=== PATIENT | female | born 1935 | race Caucasian/White ===

== ENCOUNTER 2017-03-22 12:47 | Day surgery (SDC) | payer MEDICARE ==
[2017-03-16 15:57] VITALS: BMI 25.7
[~2017-03-22 12:47] MED LIST: SODIUM CHLORIDE 0.9% 1,000 ML IV SCH; ceFAZolin 1,000 MG in SODIUM CHLORIDE 0.9% IRRIGATIO 250 ML IRRIGATION ONE; ceFAZolin 2 GM in SODIUM CHLORIDE 0.9% 100 ML IVPB ONE
[2017-03-22 13:25] LABS: Basophils % (A) 0 %; CH 31.1; CHCM 32.6; Eosinophils # (A) 0.2 k/uL (0-0.7); Eosinophils % (A) 2 %; HCT 44.3 % (34.0-46.0); HDW 2.44; HGB 14.3 gm/dL (11.4-16.0); Luc # (Auto) 0.12; Luc % (Auto) 2; Lymphocytes # (A) 1.4 k/uL (1.0-4.8); Lymphocytes % (A) 20 %; MCHC 32.3 g/dL (31.0-37.0); MCV 95.9 fL (80.0-100.0); Mean Platelet Volume 7.1; Monocytes # (A) 0.3 k/uL (0-1.0); Monocytes % (A) 4 %; Neutrophils % (A) 71 %; RBC 4.62 m/uL (3.80-5.40); RDW 13.8 % (11.5-15.5); WBC (Perox) 7.48
[2017-03-22 13:39] LABS: Calcium 9.4 mg/dL (8.4-10.2); Potassium 4.1 mmol/L (3.5-5.1)
[2017-03-22] MEDS ORDERED: MIDAZOLAM 2 MG/2 ML VIAL ONE (14:17)
[2017-03-22] MEDS ORDERED: fentaNYL (PF) 50 MCG/ML 2 ML AMP ONE (14:17)
[2017-03-22] MEDS ORDERED: PROPOFOL 10 MG/ML 20 ML VIAL IV ONE (14:17)
[2017-03-22] MEDS ORDERED: LIDOCAINE 1% INJ 10MG/ML (20 ML MDV) SQ ONE (15:04)
[2017-03-22] MEDS ORDERED: ACETAMINOPHEN TAB 325 MG TAB PO PRN (16:06)
[2017-03-22] MEDS ORDERED: ACETAMINOPHEN IV (For NPO) 1,000 MG in EMPTY BAG 1 BAG IVPB ONE (17:00)
--- NOTE | 2017-03-22 17:07 | PCN ---
DATE OF PROCEDURE: Rihca is an 81-year-old female who has known ischemic cardiomyopathy with a reduced LV systolic function and class II heart failure symptoms, sick sinus syndrome with a past history of ventricular tachycardia that was the original indication for ICD implantation. A dual-chamber ICD was implanted at that time for management of concomitant sick sinus syndrome. Her generator is at [facility]. She was brought in for a dual-chamber ICD generator change. Patient was brought to the EP lab in a fasting state. Written informed consent was obtained prior to the procedure. The left shoulder area was prepped and draped as per protocol. Lidocaine 1% was used for local anesthesia. A 4 cm decision was made directly over the previous surgical site and carried down to the level of the generator. The generator was explanted. Leads were interrogated. The new generator was implanted. Partial capsulectomy was performed. Lead and the generator were tested and then placed in the subfascial pocket and secured to the underlying pectoralis muscle. The extracted device was a KRAFTWERK E110, serial #[id number], originally implanted in 2009. The newly implanted generator was a Topic ICD DR, model #D153, serial #[id number]. The atrial lead is a Fineline II screw-in lead, bipolar, model #4473, serial #[id number]. The P waves were 3.4 mV, pacing threshold 0.6 v at 0.4 ms, pacing impedance of 351 ohms. The ICD lead was a Eolia active fix dual-coil lead, model #0157, serial #[id number], R waves 13.7 mV, pacing threshold 0.9 v at 0.4 ms, pacing impedance of 599 ohms, shock impedance of 48 ohms. DFT testing under anesthesia was performed. A knerm-jhu-R-wave protocol was used to induce ventricular fibrillation. This was adequately and appropriately detected at least sensitivity and successfully internally defibrillated with a 21-joule shock. A 10-joule shock was unsuccessful. Total charge time was 3.6 seconds, shocking impedance 42 ohms. No post-shock noise. The device was then reprogrammed to a sensitivity of 0.4 mV. MADIT RIT programming was performed with appropriate anti-tachycardia pacing, cardioversion and defibrillation. RESULT: Successful dual-chamber ICD generator change for normal battery depletion in a patient with ischemic cardiomyopathy, class II stable heart failure symptoms, on appropriate ( ) and medical treatment as well as amiodarone for history of ventricular tachycardia and a history of sick sinus syndrome. DFT at or below 21 joules. PLAN: Intravenous antibiotics and likely discharge tomorrow. Followup in the office in 5 days.
--- NOTE | 2017-03-22 17:09 | LTR ---
March 22, 2017 RE: Richa Rice Dear Dr. Bueno, I had the pleasure of seeing Richa Rice in electrophysiology followup. As you know, Richa has ischemic cardiomyopathy and a history of ventricular tachycardia. An ICD was implanted in 2009. Her generator was at [facility], and therefore her dual-chamber ICD was replaced. She tolerated the procedure well without any acute complications. She will continue to follow up with you and Dr. Jael Ponce as before. Thank you for entrusting me with the care of your patient. Warm regards. Sincerely, YULY HAWKINS MD
[2017-03-22] MEDS: ceFAZolin 2 GM in SODIUM CHLORIDE 0.9% 100 ML IVPB SCH (19:37)
[2017-03-22] MEDS: METOPROLOL TARTRATE 50 MG TAB PO SCH (19:37)
[2017-03-23] MEDS: ceFAZolin 2 GM in SODIUM CHLORIDE 0.9% 100 ML IVPB SCH ×2 (01:36→08:30)
[2017-03-23] MEDS ORDERED: LEVOTHYROXINE 50 MCG TAB PO SCH (06:30)
[2017-03-23] MEDS: LOSARTAN 50 MG TAB PO SCH ×2 (07:48→09:38)
[2017-03-23] MEDS: METOPROLOL TARTRATE 50 MG TAB PO SCH (07:48)
[2017-03-23] MEDS ORDERED: AMIODARONE 200 MG TAB PO SCH (09:00)
--- NOTE | 2017-03-23 10:51 | PN ---
Ms. Bobby underwent a dual-chamber ICD generator change yesterday. She has a history of ventricular tachycardia. She has had ICD therapies subsequently. Originally, she had ventricular fibrillation in the setting of underlying chronic ischemic cardiomyopathy and hence, ICD was placed at that time and dual-chamber ICD was implanted because of mild sinus bradycardia. She underwent an ICD generator change today and is doing well. There is no hematoma. Heart sounds are normal. No rub, no gallop. Breath sounds are normal. No rhonchi. No crackles. Abdomen is soft, nontender. Extremities are warm. No edema. Blood pressure is in normal limits. She is lying flat in bed. PLAN: IV antibiotics and discharge home today. Follow up in the [facility] in 5 days and followup with Dr. Ponce as usual. Continue amiodarone, continue heart failure medications.
[2017-03-23 11:35] VITALS: BP 112/54; PULSE 53; RESP 18; TEMP 98.1
== END 2017-03-23 14:47 | disposition home or self-care (01) ==
LOC: CATHEP 12:47 → 3OBS 15:50 → CATHEP 03-23 14:47
PROVIDERS: ATTEND Internal Medicine Clinical Cardiac Electrophysiology
DX: I49.5 Sick sinus syndrome (principal); I25.5 Ischemic cardiomyopathy; I47.2 Ventricular tachycardia; Z20.6 Contact with and (suspected) exposure to human immunodeficiency virus [HIV]; I10 Essential (primary) hypertension; Z95.1 Presence of aortocoronary bypass graft; E78.5 Hyperlipidemia, unspecified; Z79.899 Other long term (current) drug therapy
CPT/HCPCS: 93641; 33249; 80048; 85025; C1721; J2250; J0690 ×3; J2001; J3010; J2704

== ENCOUNTER 2017-09-16 09:39 | Observation (INO) | payer MEDICARE ==
[2017-09-16] MEDS ORDERED: MORPHINE SULFATE 4 MG/ML SYRINGE IVP STA (10:12)
--- NOTE | 2017-09-16 10:16 | ED ---
General Adult HPI - General Chief complaint: Shortness of Breath Stated complaint: jovan Time Seen by Provider: 09/16/17 09:50 Source: patient, RN notes reviewed, old records reviewed Mode of arrival: wheelchair Limitations: no limitations - History of Present Illness Initial comments: 82-year-old female with history of coronary artery disease, remote history of cardiac arrest status post implantable defibrillator presents for evaluation of shortness of breath and bilateral upper back pain. Pain in the patient's back is over the base of her lungs. Is stabbing and intermittent in nature and associated with deep inspiration patient does complain of some mild shortness of breath which she attributes to the pain. No central chest pain. Patient has mild cough which is unchanged from baseline. No sputum. No fever. Patient denies any lower extremity swelling. No recent change in medications. Patient denies nausea or diaphoresis. No vomiting no diarrhea. - Related Data Home Medications Medication Instructions Recorded Confirmed Amiodarone [Cordarone] 200 mg PO DAILY 03/16/17 09/16/17 Losartan Potassium [Cozaar] 50 mg PO DAILY 03/16/17 09/16/17 Metoprolol Tartrate [Lopressor] 50 mg PO BID 03/16/17 09/16/17 Ibuprofen [Motrin] 600 mg PO Q8HR PRN 09/16/17 09/16/17 Levothyroxine Sodium [Synthroid] 100 mcg PO DAILY 09/16/17 09/16/17 Allergies Allergy/AdvReac Type Severity Reaction Status Date / Time No Known Allergies Allergy Verified 09/16/17 10:12 Review of Systems ROS Statement: Those systems with pertinent positive or pertinent negative responses have been documented in the HPI. ROS Other: All systems not noted in ROS Statement are negative. Past Medical History Past Medical History: Eye Disorder, Myocardial Infarction ([place]), Thyroid Disorder Additional Past Medical History / Comment(s): SEE DR HAWKINS H&P, BLIND IN LEFT EYE Last Myocardial Infarction Date:: 2009 History of Any Multi-Drug Resistant Organisms: None Reported Past Surgical History: AICD, Coronary Bypass/CABG, Heart Catheterization, Hernia Repair Past Anesthesia/Blood Transfusion Reactions: No Reported Reaction Type of Cardiac Device: AICD Device Placement Date:: 2009 [employer] Past Psychological History: No Psychological Hx Reported Smoking Status: Never smoker Past Alcohol Use History: Occasional Past Drug Use History: None Reported - Past Family History Sister(s) Family Medical History: Cancer Additional Family Medical History / Comment(s): BREAST Daughter(s) Family Medical History: Cancer Additional Family Medical History / Comment(s): BREAST General Exam Limitations: no limitations General appearance: alert, in no apparent distress Head exam: Present: atraumatic, normocephalic Eye exam: Present: normal appearance, PERRL ENT exam: Present: normal exam Neck exam: Present: normal inspection. Absent: tenderness, meningismus Respiratory exam: Present: normal lung sounds bilaterally. Absent: respiratory distress Cardiovascular Exam: Present: regular rate, normal rhythm GI/Abdominal exam: Present: soft. Absent: distended, tenderness Extremities exam: Present: normal inspection, normal capillary refill. Absent: pedal edema Back exam: Present: normal inspection, full ROM. Absent: tenderness, CVA tenderness (R), CVA tenderness (L), vertebral tenderness Neurological exam: Present: alert, oriented X3, CN II-XII intact. Absent: motor sensory deficit Psychiatric exam: Present: normal affect, normal mood Skin exam: Present: warm, dry, intact. Absent: cyanosis, diaphoretic Course Vital Signs 09/16/17 09/16/17 09/16/17 09:40 10:41 11:21 Temperature 97.5 F L Pulse Rate 71 53 L 54 L Respiratory 20 18 20 Rate Blood Pressure 134/82 158/67 163/86 O2 Sat by Pulse 96 98 97 Oximetry 09/16/17 09/16/17 12:13 14:03 Temperature Pulse Rate 55 L 56 L Respiratory 20 20 Rate Blood Pressure 174/82 199/90 O2 Sat by Pulse 97 Oximetry - Reevaluation(s) Reevaluation #1: 09/16/17 14:11 On reevaluation, patient is feeling better. EKG Findings - EKG Comments: EKG Findings:: EKG shows normal sinus rhythm, ventricular rate 63, MS interval 144, QRS duration 122, QTC 458, no ST segment elevation. Medical Decision Making - Medical Decision Making 82-year-old female presenting with chief complaint of pain with deep inspiration and mild shortness of breath. Patient has no central or radiating chest pain. Pain is pleuritic in nature. Laboratory studies reveal normal white blood cell count, hemoglobin stable at 14.2, d-dimer is elevated at 4.87, creatinine is also elevated with a reduced GFR, for this reason VQ scan is obtained to evaluate for pulmonary embolism. This shows normal ventilation perfusion mismatch. EKG does show an abnormal T-wave morphology in the precordium consistent with a U wave-T wave fusion, no ST segment elevation. Electrolytes are unremarkable. Troponin is negative. There is mild elevation in BMP, although no clinical signs of heart failure. Patient lives alone, and family is very concerned about her chest pain and shortness of breath. Patient is agreeable to observation for further evaluation and cardiology consult. Diagnosis: Pleuritic chest pain - Lab Data Result diagrams: 09/16/17 09:58 09/16/17 09:58 Lab Results 09/16/17 09/16/17 09/16/17 Range/Units 09:58 09:58 09:58 WBC 7.7 (3.8-10.6) k/uL RBC 4.69 (3.80-5.40) m/uL Hgb 14.2 (11.4-16.0) gm/dL Hct 45.0 (34.0-46.0) % MCV 95.9 (80.0-100.0) fL MCH 30.3 (25.0-35.0) pg MCHC 31.6 (31.0-37.0) g/dL RDW 14.8 (11.5-15.5) % Plt Count 264 (150-450) k/uL Neutrophils % 78 % Lymphocytes % 14 % Monocytes % 5 % Eosinophils % 1 % Basophils % 1 % Neutrophils # 6.0 (1.3-7.7) k/uL Lymphocytes # 1.1 (1.0-4.8) k/uL Monocytes # 0.4 (0-1.0) k/uL Eosinophils # 0.1 (0-0.7) k/uL Basophils # 0.0 (0-0.2) k/uL PT (9.0-12.0) sec INR (<1.2) APTT (22.0-30.0) sec D-Dimer (<0.60) mg/L FEU Sodium 139 (137-145) mmol/L Potassium 4.3 (3.5-5.1) mmol/L Chloride 105 (98-107) mmol/L Carbon Dioxide 23 (22-30) mmol/L Anion Gap 11 mmol/L BUN 16 (7-17) mg/dL Creatinine 1.41 H (0.52-1.04) mg/dL Est GFR (MDRD) Af Amer 43 (>60 ml/min/1.73 sqM) Est GFR (MDRD) Non-Af 36 (>60 ml/min/1.73 sqM) Glucose 137 H (74-99) mg/dL Calcium 9.7 (8.4-10.2) mg/dL Magnesium 1.9 (1.6-2.3) mg/dL Total Bilirubin 1.1 (0.2-1.3) mg/dL AST 20 (14-36) U/L ALT 17 (9-52) U/L Alkaline Phosphatase 93 (38-126) U/L Total Creatine Kinase 36 (30-135) U/L CK-MB (CK-2) 0.4 (0.0-2.4) ng/mL CK-MB (CK-2) Rel Index 1.1 Troponin I <0.012 (0.000-0.034) ng/mL NT-Pro-B Natriuret Pep pg/mL Total Protein 7.3 (6.3-8.2) g/dL Albumin 4.1 (3.5-5.0) g/dL Urine Color Urine Appearance (Clear) Urine pH (5.0-8.0) Ur Specific Hopkins (1.001-1.035) Urine Protein (Negative) Urine Glucose (UA) (Negative) Urine Ketones (Negative) Urine Blood (Negative) Urine Nitrite (Negative) Urine Bilirubin (Negative) Urine Urobilinogen (<2.0) mg/dL Ur Leukocyte Esterase (Negative) Urine RBC (0-5) /hpf Urine WBC (0-5) /hpf Ur Squamous Epith Cells (0-4) /hpf Urine Mucus (None) /hpf 09/16/17 09/16/17 09/16/17 Range/Units 09:58 09:58 13:50 WBC (3.8-10.6) k/uL RBC (3.80-5.40) m/uL Hgb (11.4-16.0) gm/dL Hct (34.0-46.0) % MCV (80.0-100.0) fL MCH (25.0-35.0) pg MCHC (31.0-37.0) g/dL RDW (11.5-15.5) % Plt Count (150-450) k/uL Neutrophils % % Lymphocytes % % Monocytes % % Eosinophils % % Basophils % % Neutrophils # (1.3-7.7) k/uL Lymphocytes # (1.0-4.8) k/uL Monocytes # (0-1.0) k/uL Eosinophils # (0-0.7) k/uL Basophils # (0-0.2) k/uL PT 10.0 (9.0-12.0) sec INR 1.0 (<1.2) APTT 22.9 (22.0-30.0) sec D-Dimer 4.87 H (<0.60) mg/L FEU Sodium (137-145) mmol/L Potassium (3.5-5.1) mmol/L Chloride (98-107) mmol/L Carbon Dioxide (22-30) mmol/L Anion Gap mmol/L BUN (7-17) mg/dL Creatinine (0.52-1.04) mg/dL Est GFR (MDRD) Af Amer (>60 ml/min/1.73 sqM) Est GFR (MDRD) Non-Af (>60 ml/min/1.73 sqM) Glucose (74-99) mg/dL Calcium (8.4-10.2) mg/dL Magnesium (1.6-2.3) mg/dL Total Bilirubin (0.2-1.3) mg/dL AST (14-36) U/L ALT (9-52) U/L Alkaline Phosphatase (38-126) U/L Total Creatine Kinase (30-135) U/L CK-MB (CK-2) (0.0-2.4) ng/mL CK-MB (CK-2) Rel Index Troponin I (0.000-0.034) ng/mL NT-Pro-B Natriuret Pep 1130 pg/mL Total Protein (6.3-8.2) g/dL Albumin (3.5-5.0) g/dL Urine Color Light Yellow Urine Appearance Clear (Clear) Urine pH 7.0 (5.0-8.0) Ur Specific Hopkins 1.006 (1.001-1.035) Urine Protein Negative (Negative) Urine Glucose (UA) Negative (Negative) Urine Ketones Negative (Negative) Urine Blood Negative (Negative) Urine Nitrite Negative (Negative) Urine Bilirubin Negative (Negative) Urine Urobilinogen <2.0 (<2.0) mg/dL Ur Leukocyte Esterase Small H (Negative) Urine RBC <1 (0-5) /hpf Urine WBC 1 (0-5) /hpf Ur Squamous Epith Cells 1 (0-4) /hpf Urine Mucus Rare H (None) /hpf Disposition Clinical Impression: Chest pain Disposition: ADMITTED IP TO THIS HOSP Condition: Stable Referrals: Farhan Bueno DO [Primary Care Provider] - 1-2 days Decision to Admit Reason: Admit from EC Decision Date: 09/16/17 Decision Time: 14:18
[2017-09-16 10:25] LABS: Basophils % (A) 1 %; CH 30.6; Eosinophils # (A) 0.1 k/uL (0-0.7); Eosinophils % (A) 1 %; HDW 2.41; HGB 14.2 gm/dL (11.4-16.0); Luc # (Auto) 0.08; Luc % (Auto) 1; Lymphocytes # (A) 1.1 k/uL (1.0-4.8); Lymphocytes % (A) 14 %; MCH 30.3 pg (25.0-35.0); MCHC 31.6 g/dL (31.0-37.0); MCV 95.9 fL (80.0-100.0); Mean Platelet Volume 8.4; Monocytes # (A) 0.4 k/uL (0-1.0); Monocytes % (A) 5 %; Neutrophils % (A) 78 %; RBC 4.69 m/uL (3.80-5.40); RDW 14.8 % (11.5-15.5); WBC 7.7 k/uL (3.8-10.6); WBC (Perox) 7.88
[2017-09-16 10:34] LABS: Calcium 9.7 mg/dL (8.4-10.2); Magnesium 1.9 mg/dL (1.6-2.3); Potassium 4.3 mmol/L (3.5-5.1); Total Bilirubin 1.1 mg/dL (0.2-1.3); Total Protein 7.3 g/dL (6.3-8.2)
[2017-09-16 10:46] LABS: Creatine Kinase 36 U/L (30-135)
[2017-09-16 10:49] LABS: Partial Thromboplastin Time 22.9 sec (22.0-30.0)
--- NOTE | 2017-09-16 10:58 | XR ---
EXAMINATION TYPE: XR chest 2V DATE OF EXAM: 09/16/2017 HISTORY: difficulty breathing. REFERENCE: NONE. FINDINGS: There is a bipolar pacemaker in place on the left. The lungs are clear. Pleural space are clear. The heart is not enlarged. There are senescent changes throughout the lungs. IMPRESSION: NO ACUTE INTRATHORACIC ABNORMALITY.
[2017-09-16 10:59] LABS: Creatine Kinase MB 0.4 ng/mL (0.0-2.4); Troponin I <0.012 ng/mL (0.000-0.034)
[2017-09-16] MEDS ORDERED: SODIUM CHLORIDE 0.9% 500 ML IV ONE (11:20)
[2017-09-16] MEDS ORDERED: RX INFO: IV CONTRAST WAS GIVEN 1 EACH MISC MISCELLANE PRN (11:21)
[2017-09-16] MEDS ORDERED: SODIUM CHLORIDE 0.9% 1,000 ML IV SCH (11:30)
--- NOTE | 2017-09-16 13:17 | NM ---
EXAMINATION TYPE: NM pul vent and perfuse DATE OF EXAM: 09/16/2017 COMPARISON: Chest x-ray dated 09/16/2017 HISTORY: Elevated d-dimer. TECHNIQUE: Utilizing inhalation of 73.5 mCi Tc 99m DTPA aerosol and intravenous injection of 5.1 mCi of Tc 99m MAA, ventilation and perfusion images are acquired post injection in multiple projections. FINDINGS: Normal radiotracer distribution is noted in the lungs. There is no evidence of mismatched defects. IMPRESSION: THIS EXAMINATION IS WITHIN NORMAL LIMITS.
[2017-09-16 14:04] LABS: Appearance,Urine Clear (Clear); Bilirubin,Urine Negative (Negative); Glucose,Urine (UA) Negative (Negative); Ketones,Urine Negative (Negative); Leukocyte Esterase,Urine Small (Negative); Mucus,Urine Rare /hpf; Nitrite,Urine Negative (Negative); Particle Count 1028; Protein,Urine Negative (Negative); RBC,Urine <1 /hpf (0-5); Specific Gravity,Urine 1.006 (1.001-1.035); Squamous Epithelial Cell,Urine 1 /hpf (0-4); UA Billing (MACRO vs. MICRO) MICRO; Urobilinogen,Urine <2.0 mg/dL (<2.0); WBC,Urine 1 /hpf (0-5)
[2017-09-16] MEDS ORDERED: LOSARTAN 50 MG TAB PO STA (14:14)
[2017-09-16] MEDS ORDERED: METOPROLOL TARTRATE 50 MG TAB PO STA (14:14)
[2017-09-16] MEDS ORDERED: ACETAMINOPHEN TAB 325 MG TAB PO PRN (14:18)
[2017-09-16] MEDS ORDERED: MORPHINE SULFATE 4 MG/ML SYRINGE IV PRN (14:18)
[2017-09-16] MEDS ORDERED: NALOXONE 0.4 MG/ML 1 ML VIAL IV PRN (14:18)
[2017-09-16] MEDS ORDERED: ONDANSETRON 4 MG/2 ML VIAL IVP PRN (14:18)
[2017-09-16 16:41] VITALS: RESP 16
[2017-09-16 17:00] VITALS: BMI 26.9
[2017-09-16 17:29] LABS: Creatine Kinase 37 U/L (30-135)
[2017-09-16 17:42] LABS: Creatine Kinase MB 0.4 ng/mL (0.0-2.4); Troponin I <0.012 ng/mL (0.000-0.034)
[2017-09-16] MEDS ORDERED: DOCUSATE 100 MG CAP PO PRN (18:20)
[2017-09-16] MEDS: METOPROLOL TARTRATE 50 MG TAB PO SCH (20:47)
[2017-09-16] MEDS: SENNOSIDES 8.6 MG TAB PO SCH (20:47)
--- NOTE | 2017-09-16 21:31 | P.HPIM ---
History of Present Illness H&P Date: 09/16/17 Chief Complaint: Increasing shortness of breath bilateral upper back pain HISTORY OF PRESENT ILLNESS: 82-year-old female patient of Dr. Farhan Bueno with chronic stable medical conditions that include myocardial infarction, coronary artery bypass grafting hypothyroidism, AICD, hypertension, presented with complaints of shortness of breath and bilateral upper back pain. States her pain has been over the base of her lungs it's stabbing and intermittent in nature usually occurs with deep inspiration and has associated shortness of breath which is worse directly related to the pain. No midsternal her central chest pain. Has cough with no sputum production no fever, no lower extremity swelling no recent changes in medications. REVIEW OF SYSTEMS GEN.: [ Tired] EYES: [None] HEENT: [None] NECK: [None] RESPIRATORY: [Difficulty breathing, shortness of breath] CARDIOVASCULAR: [None] GASTROINTESTINAL: [Decreased appetite] GENITOURINARY: [Occasionally leaks urine] MUSCULOSKELETAL: [Back pain] LYMPHATICS: [None] HEMATOLOGICAL: [None] PSYCHIATRY: [None] NEUROLOGICAL: [None] PAST MEDICAL HISTORY Past medical history: Left eye blind, myocardial infarction, hypothyroidism, essential hypertension Past surgical history: AICD, coronary bypass/CABG, heart catheterization, hernia repair. Past psychological history: None SOCIAL HISTORY: Additional psychological/social history: None Smoking use history: Never Alcohol use history: Occasional Drug use history: None Marital status: Lives situation: Lives alone Work history: FAMILY HISTORY: Sr.: Cancer,breast Daughter: cancer,breast HOME MEDICATION: Lopressor 50 mg by mouth twice a day Cozaar 59 g by mouth daily Synthroid 100 g by mouth daily Ibuprofen 600 mg by mouth every 6 hours when necessary Amiodarone 200 mg by mouth daily ALLERGIES: NO KNOWN ALLERGIES VITAL SIGNS: [Temperature 96.9, pulse 63, respiratory rate 16, blood pressure 132/77, oxygen saturation 93% on room air. BMI noted] GENERAL: [Average built, sitting up, comfortable]. EYES: [Left eye blind. Conjunctiva florina]l. HEENT: [External appearance of nose and ears normal, oral cavity grossly normal] . NECK: [JVD not raised; masses not palpable]. HEART: [First and second heart sounds are normal; no edema]. LUNGS:[ Respiratory rate normal; diminished with crackles to the right base tenderness to palpation right posterior and right lateral chest wall ]. ABDOMEN: [Soft, nontender, liver spleen not palpable, no masses palpable]. LYMPHATICS: [No lymph nodes palpable in the axilla and neck]. PSYCH: [Alert and oriented x3; mood and affect florina]l. NEUROLOGICAL: [Cranial nerves grossly intact; no facial asymmetry, power and sensation grossly intact]. INVESTIGATIONS: CBC unremarkable, d-dimer 4.87, BUN 16, creatinine 1.41 VQ scan exam within normal limits Chest x-ray: No acute intrathoracic abnormality. ASSESSMENT: -Atypical chest pain in a patient with a significant cardiac history, AICD placement in 2009 -Essential hypertension -Hypothyroidism -Primary osteoarthritis of multiple joints bilateral. PLAN: Patient admitted to [address] home medications reordered, cardiology consulted and plan of care. 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 De Los Santos. , Past Medical History Past Medical History: Eye Disorder, Myocardial Infarction ([place]), Thyroid Disorder Additional Past Medical History / Comment(s): SEE DR HAWKINS H&P, BLIND IN LEFT EYE Last Myocardial Infarction Date:: 2009 History of Any Multi-Drug Resistant Organisms: None Reported Past Surgical History: AICD, Coronary Bypass/CABG, Heart Catheterization, Hernia Repair Past Anesthesia/Blood Transfusion Reactions: No Reported Reaction Type of Cardiac Device: AICD Device Placement Date:: 2009 [employer] Past Psychological History: No Psychological Hx Reported Smoking Status: Never smoker Past Alcohol Use History: Occasional Past Drug Use History: None Reported - Past Family History Sister(s) Family Medical History: Cancer Additional Family Medical History / Comment(s): BREAST Daughter(s) Family Medical History: Cancer Additional Family Medical History / Comment(s): BREAST Medications and Allergies Home Medications Medication Instructions Recorded Confirmed Type Amiodarone [Cordarone] 200 mg PO DAILY 03/16/17 09/16/17 History Losartan Potassium [Cozaar] 50 mg PO DAILY 03/16/17 09/16/17 History Metoprolol Tartrate [Lopressor] 50 mg PO BID 03/16/17 09/16/17 History Ibuprofen [Motrin] 600 mg PO Q8HR PRN 09/16/17 09/16/17 History Levothyroxine Sodium [Synthroid] 100 mcg PO DAILY 09/16/17 09/16/17 History Allergies Allergy/AdvReac Type Severity Reaction Status Date / Time No Known Allergies Allergy Verified 09/16/17 10:12 Physical Exam Vitals: Vital Signs Temp Pulse Pulse Resp BP BP Pulse Ox 09/16/17 20:00 96.9 F L 63 16 132/77 93 L 09/16/17 16:23 98.2 F 55 L 16 140/69 97 09/16/17 15:02 97.8 F 56 L 18 141/67 96 09/16/17 14:13 56 L 18 175/84 09/16/17 14:03 56 L 20 199/90 97 09/16/17 12:13 55 L 20 174/82 09/16/17 11:21 54 L 20 163/86 97 09/16/17 10:41 53 L 18 158/67 98 09/16/17 09:40 97.5 F L 71 20 134/82 96 Intake and Output 09/16/17 09/16/17 09/16/17 06:59 14:59 22:59 Intake Total 840 Balance 840 Intake: Oral 840 Other: Voiding Method Toilet # Voids 1 Weight 78.018 kg Patient Weight 09/17/17 06:59 Weight 78.018 kg Results CBC & Chem 7: 09/16/17 09:58 09/16/17 09:58 Labs: Abnormal Lab Results - Last 24 Hours (Table) 09/16/17 09/16/17 09/16/17 Range/Units 09:58 09:58 13:50 D-Dimer 4.87 H (<0.60) mg/L FEU Creatinine 1.41 H (0.52-1.04) mg/dL Glucose 137 H (74-99) mg/dL Ur Leukocyte Esterase Small H (Negative) Urine Mucus Rare H (None) /hpf Thrombosis Risk Factor Assmnt - Choose All That Apply Other Risk Factors: Yes Each Risk Factor Represents 3 Points: Age 75 years or older Thrombosis Risk Factor Assessment Total Risk Factor Score: 3 Thrombosis Risk Factor Assessment Level: Moderate Risk
--- NOTE | 2017-09-16 22:42 | HP ---
HISTORY AND PHYSICAL DATE OF ADMISSION: September 16, 2017. PRESENTING COMPLAINT: Short of breath. HISTORY OF PRESENTING COMPLAINT: Pleasant 82-year-old patient of Dr. Bueno, started up on Sunday with full some pain that went to the back and primarily was in the lower back both the times. Sounded more pleuritic in nature with a deep breath. The patient denies any fever. Denies any other respiratory symptoms. Has had swelling lower extremity for about 2 months. Some orthopnea is present. The patient has known underlying cardiomyopathy with Dr. Lynne's previous notes. Also got a AICD for ventricular tachycardia in the past and known coronary artery disease. PHYSICAL EXAMINATION: Afebrile. Heart rate in the 50s, respiratory rate 18, blood pressure 150/67, pulse ox 98% on 2 L. White count 7.7, hemoglobin 14.2, creatinine 1.41. ProBNP 1130. Chest x-ray shows some venous prominence and some cardiomegaly. ASSESSMENT: 1. Possible acute on chronic congestive heart failure from ischemic cardiomyopathy, ejection fraction not known. 2. Cannot rule out but may consider bilateral pleuritic pain which could be a low- grade viral pleurisy. 3. VQ scan is negative, making pulmonary embolism unlikely. 4. Coronary artery disease. 5. AICD. 6. Essential hypertension. 7. Hyperlipidemia. PLAN: At this point, we will go ahead and give patient 2 doses of IV Lasix and to also get a 2-D echocardiogram. Cardiology opinion is sought. We will see how the patient responds clinically and go further from here. This patient was seen and examined by me. I discussed with my nurse practitioner, Ms. Willard. This is a history and physical. Copy to Dr. Bueno. MMODL / IJN: [id number] /
[2017-09-16 23:25] LABS: Creatine Kinase 37 U/L (30-135)
[2017-09-16 23:37] LABS: Creatine Kinase MB 0.5 ng/mL (0.0-2.4); Troponin I <0.012 ng/mL (0.000-0.034)
[2017-09-17] MEDS ORDERED: FUROSEMIDE 10 MG/ML 10 ML VIAL IV SCH (06:00)
[2017-09-17 06:28] LABS: Basophils % (A) 1 %; CH 29.8; CHCM 31.2; Eosinophils # (A) 0.1 k/uL (0-0.7); Eosinophils % (A) 2 %; HCT 45.1 % (34.0-46.0); HDW 2.41; HGB 14.1 gm/dL (11.4-16.0); Hypochromasia Slight; Luc # (Auto) 0.06; Luc % (Auto) 1; Lymphocytes # (A) 1.3 k/uL (1.0-4.8); Lymphocytes % (A) 21 %; MCHC 31.3 g/dL (31.0-37.0); MCV 95.9 fL (80.0-100.0); Mean Platelet Volume 8.3; Monocytes # (A) 0.4 k/uL (0-1.0); Monocytes % (A) 6 %; Neutrophils # (A) 4.3 k/uL (1.3-7.7); Neutrophils % (A) 69 %; WBC 6.2 k/uL (3.8-10.6); WBC (Perox) 6.28
[2017-09-17] MEDS ORDERED: LEVOTHYROXINE 100 MCG TAB PO SCH (06:30)
[2017-09-17 06:42] LABS: Calcium 9.8 mg/dL (8.4-10.2); Potassium 4.1 mmol/L (3.5-5.1)
[2017-09-17] MEDS ORDERED: ENOXAPARIN 40 MG/0.4 ML SYRINGE SQ SCH (09:00)
[2017-09-17] MEDS ORDERED: LOSARTAN 50 MG TAB PO SCH (09:00)
[2017-09-17] MEDS ORDERED: AMIODARONE 200 MG TAB PO SCH (09:00)
[2017-09-17 11:10] VITALS: BP 131/74; PULSE 55; TEMP 97.8
--- NOTE | 2017-09-17 11:26 | ECHOF ---
Referral Reason:chf MEASUREMENTS -------- HEIGHT: 170.2 cm WEIGHT: 75.3 kg BP: 164/78 IVSd: 1.1 cm (0.6 - 1.1) LVIDd: 3.7 cm (3.9 - 5.3) LVPWd: 1.3 cm (0.6 - 1.1) IVSs: 1.4 cm LVIDs: 2.7 cm LVPWs: 1.3 cm LAESV Index (A-L): 51.26 ml/m Ao Diam: 3.0 cm (2.0 - 3.7) AV Cusp: 1.9 cm (1.5 - 2.6) LA Diam: 2.7 cm (2.7 - 3.8) MV EXCURSION: 19.436 mm (> 18.000) MV EF SLOPE: 70 mm/s (70 - 150) EPSS: 1.9 cm MV E Joseluis: 0.64 m/s MV DecT: 285 ms MV A Joseluis: 0.86 m/s MV E/A Ratio: 0.74 AR PHT: 967 ms RAP: 5.00 mmHg RVSP: 17.86 mmHg FINDINGS -------- AICD This was a technically good study. There is mild concentric left ventricular hypertrophy. Overall left ventricular systolic function i s mild-moderately impaired with, an EF between 40 - 45 %. The diastolic filling pattern is normal f or the age of the patient 15.82. Mid to basal inferiorlateral is hypokinetic The right ventricle is normal in size and function. LA is severely dilated >40 ml/m2 The right atrium is normal in size. Aortic valve is trileaflet and is mildly thickened. Trace amount of aortic regurgitation. The mitral valve leaflets are mildly thickened. Mild mitral regurgitation is present. Mild tricuspid regurgitation present. The right ventricular systolic pressure, as measured by Doppl er, is 17.86mmHg. Pulmonic valve appears structurally normal. The aortic root size is normal. The pericardium is normal. CONCLUSIONS -------- 1. AICD 2. This was a technically good study. 3. There is mild concentric left ventricular hypertrophy. 4. The diastolic filling pattern is normal for the age of the patient 15.82 5. Mid to basal inferiorlateral is hypokinetic 6. The right ventricle is normal in size and function. 7. LA is severely dilated >40 ml/m2 8. The right atrium is normal in size. 9. Aortic valve is trileaflet and is mildly thickened. 10. Trace amount of aortic regurgitation. 11. The mitral valve leaflets are mildly thickened. 12. Mild mitral regurgitation is present. 13. Mild tricuspid regurgitation present. 14. The right ventricular systolic pressure, as measured by Doppler, is 17.86mmHg. 15. Pulmonic valve appears structurally normal. 16. The aortic root size is normal. 17. The pericardium is normal. SALES OPERATIONS ASSISTANT: Lisa Hines RDCS
[2017-09-17] MEDS: SENNOSIDES 8.6 MG TAB PO SCH (12:11)
[2017-09-17] MEDS: METOPROLOL TARTRATE 50 MG TAB PO SCH (12:11)
--- NOTE | 2017-09-17 14:21 | P.CRDCN ---
History of Present Illness Consult date: 09/17/17 History of present illness: This is an 82-year-old female with past medical history significant for CABG in 1974, ischemic cardiomyopathy with AICD placement, essential hypertension, paroxysmal atrial fibrillation and hyperlipidemia. She follows regularly with Dr. Ponce as an outpatient. We have been asked to see her in consultation for complaints of shortness of breath with left flank/back region sharp pains. The pain is worse with deep inspiration or movement. She denies associated palpitations, dizziness, diaphoresis, nausea or vomiting. She denies radiation of movement of the pain anywhere. Most recent echocardiogram in the office reveals decreased LV function with EF 45%. EKG reveals sinus mechanism with evidence of old inferior infarct with no acute ST or T-wave changes. Chest xray reveals no acute cardiopulmonary process. Cardiac enzymes negative x3, potassium 4.1, magnesium 1.9, D-dimer 4.87 with negative VQ scan for PE. Blood pressure 131/74 with heart rate 55. Current cardiac medications include metoprolol tartrate 50 mg BID, losartan 50 mg daily and amiodarone 200 mg daily. Review of Systems CONSTITUTIONAL: Denies fever. Denies chills. EYES: Denies blurred vision. Denies vision changes. Denies eye pain. EARS, NOSE, MOUTH & THROAT: Denies headache. Denies sore throat. Denies ear pain. CARDIOVASCULAR: Denies chest pain. Complains of shortness of breath. Denies orthopnea. Denies PND. Denies palpitations. RESPIRATORY: Denies cough. GASTROINTESTINAL: Denies abdominal pain. Denies diarrhea. Denies constipation. Denies nausea. Denies vomiting. MUSCULOSKELETAL: Denies myalgias. INTEGUMENTARY: Denies pruitis. Denies rash. NEUROLOGIC: Denies numbness. Denies tingling. Denies weakness. PSYCHIATRIC: Denies anxiety. Denies depression. ENDOCRINE: Denies fatigue. Denies weight change. Denies polydipsia. Denies polyurina. GENITOURINARY: Denies burning, hematuria or urgency with micturation. HEMATOLOGIC: Denies history of anemia. Denies bleeding. Past Medical History Past Medical History: Eye Disorder, Myocardial Infarction (MT), Thyroid Disorder Additional Past Medical History / Comment(s): SEE DR SHRUTHI Jones&Jenny, BLIND IN LEFT EYE Last Myocardial Infarction Date:: 2009 History of Any Multi-Drug Resistant Organisms: None Reported Past Surgical History: AICD, Coronary Bypass/CABG, Heart Catheterization, Hernia Repair Past Anesthesia/Blood Transfusion Reactions: No Reported Reaction Type of Cardiac Device: AICD Device Placement Date:: 2009 Nonabox Past Psychological History: No Psychological Hx Reported Smoking Status: Never smoker Past Alcohol Use History: Occasional Past Drug Use History: None Reported - Past Family History Sister(s) Family Medical History: Cancer Additional Family Medical History / Comment(s): BREAST Daughter(s) Family Medical History: Cancer Additional Family Medical History / Comment(s): BREAST Medications and Allergies Home Medications Medication Instructions Recorded Confirmed Type Amiodarone [Cordarone] 200 mg PO DAILY 03/16/17 09/16/17 History Losartan Potassium [Cozaar] 50 mg PO DAILY 03/16/17 09/16/17 History Metoprolol Tartrate [Lopressor] 50 mg PO BID 03/16/17 09/16/17 History Ibuprofen [Motrin] 600 mg PO Q8HR PRN 09/16/17 09/16/17 History Levothyroxine Sodium [Synthroid] 100 mcg PO DAILY 09/16/17 09/16/17 History Allergies Allergy/AdvReac Type Severity Reaction Status Date / Time No Known Allergies Allergy Verified 09/16/17 10:12 Physical Exam Vitals: Vital Signs Temp Pulse Pulse Resp BP BP Pulse Ox 09/17/17 11:09 97.8 F 55 L 16 131/74 96 09/17/17 09:14 97.6 F 58 L 16 123/60 93 L 09/17/17 04:00 97 F L 57 L 16 164/78 96 09/16/17 23:55 96.9 F L 54 L 16 108/57 92 L 09/16/17 20:00 96.9 F L 63 16 132/77 93 L 09/16/17 16:23 98.2 F 55 L 16 140/69 97 09/16/17 15:02 97.8 F 56 L 18 141/67 96 09/16/17 14:13 56 L 18 175/84 09/16/17 14:03 56 L 20 199/90 97 Intake and Output 09/16/17 09/17/17 09/17/17 22:59 06:59 14:59 Intake Total 1640 16.5 Balance 1640 16.5 Intake: IV 800 16.5 0.9% NS FLUSH 10 mL 10 Lasix 60mg/6mL 6 Morphine 4mg/1mL 0.5 Sodium Chloride 0.9% 1, 800 000 ml @ 100 mls/hr IV . Q10H [facility] Rx#:[id number] Oral 840 Other: Voiding Method Toilet Toilet Toilet # Voids 2 Weight 75.5 kg GENERAL: This is a 82-year-old female in no apparent distress at the time of my examination. HEENT: Head is atraumatic, normocephalic. Pupils are equal, round. Sclerae anicteric. Conjunctivae are clear. Mucous membranes of the mouth are moist. Neck is supple. There is no jugular venous distention. No carotid bruit is heard. LUNGS: Clear to auscultation no wheezes, rales or rhonchi. No chest wall tenderness is noted on palpation or with deep breathing. Pain noted left lung base with deep inspiration. HEART: Regular rate and rhythm without murmurs, rubs or gallops. S1 and S2 heard. ABDOMEN: Soft, nontender. Bowel sounds are heard. No organomegaly noted. EXTREMITIES: 2+ peripheral pulses with no evidence of peripheral edema and no calf tenderness noted. NEUROLOGIC: Patient is awake, alert and oriented x3. Results 09/17/17 05:42 09/17/17 05:42 Cardiac Enzymes 09/16/17 09/16/17 Range/Units 16:41 22:30 CK-MB (CK-2) 0.4 0.5 (0.0-2.4) ng/mL Troponin I <0.012 <0.012 (0.000-0.034) ng/mL CBC 09/17/17 Range/Units 05:42 WBC 6.2 (3.8-10.6) k/uL RBC 4.70 (3.80-5.40) m/uL Hgb 14.1 (11.4-16.0) gm/dL Hct 45.1 (34.0-46.0) % Plt Count 268 (150-450) k/uL Comprehensive Metabolic Panel 09/17/17 Range/Units 05:42 Sodium 141 (137-145) mmol/L Potassium 4.1 (3.5-5.1) mmol/L Chloride 104 (98-107) mmol/L Carbon Dioxide 27 (22-30) mmol/L BUN 17 (7-17) mg/dL Creatinine 1.33 H (0.52-1.04) mg/dL Glucose 116 H (74-99) mg/dL Calcium 9.8 (8.4-10.2) mg/dL Current Medications Generic Name Dose Route Start Last Admin Trade Name Freq PRN Reason Stop Dose Admin Acetaminophen 650 mg 09/16/17 14:18 Tylenol Tab PO Q6HR PRN Mild Pain or Fever > 100.5 Amiodarone HCl 200 mg 09/17/17 09:00 09/17/17 12:12 Cordarone PO 200 mg DAILY BRIDGER Administration Enoxaparin Sodium 40 mg 09/17/17 09:00 09/17/17 12:10 Lovenox SQ Not Given DAILY BRIDGER Levothyroxine Sodium 100 mcg 09/17/17 06:30 09/17/17 04:56 Synthroid PO 100 mcg DAILY@0630 BRIDGER Administration Losartan Potassium 50 mg 09/17/17 09:00 09/17/17 12:12 Cozaar PO 50 mg DAILY BRIDGER Administration Metoprolol Tartrate 50 mg 09/16/17 21:00 09/17/17 12:11 Lopressor PO 50 mg BID BRIDGER Administration Miscellaneous Information 1 each 09/16/17 11:21 Rx Info: Iv Contrast Was Given MISCELLANE 09/18/17 11:21 DAILY PRN Per Protocol Morphine Sulfate 4 mg 09/16/17 14:18 09/17/17 04:54 Morphine Sulfate (Inj) IV 2 mg Q4HR PRN Administration Severe Pain Naloxone HCl 0.2 mg 09/16/17 14:18 Narcan IV Q2M PRN Opioid Reversal Ondansetron HCl 4 mg 09/16/17 14:18 Zofran IVP Q8HR PRN Nausea And Vomiting Senna 8.6 mg 09/16/17 21:00 09/17/17 12:11 Senokot PO 8.6 mg BID BRIDGER Administration Intake and Output 09/16/17 09/17/17 09/17/17 22:59 06:59 14:59 Intake Total 1640 16.5 Balance 1640 16.5 Intake: IV 800 16.5 0.9% NS FLUSH 10 mL 10 Lasix 60mg/6mL 6 Morphine 4mg/1mL 0.5 Sodium Chloride 0.9% 1, 800 000 ml @ 100 mls/hr IV . Q10H [facility] Rx#:[id number] Oral 840 Other: Voiding Method Toilet Toilet Toilet # Voids 2 Weight 75.5 kg 09/17/17 05:42 09/17/17 05:42 Assessment and Plan Assessment: ASSESSMENT 1. Shortness of breath 2. History CABG 1974 3. Ischemic cardiomyopathy, stable with previous AICD placement with recent generator changes 4. Essential hypertension PLAN The patient is not interested in having any diagnostic testing done at this time. She does not appear to be in acute failure, lasix has been discontinued. She has been given a prescription for motrin to take for the pain. Thank you kindly for this consultation. Dr. Ponce will see her in the office in 2-3 weeks. Nurse Practitioner note has been reviewed, I agree with a documented findings and plan of care. Patient was seen and examined.
--- NOTE | 2017-09-17 19:12 | P.DS ---
Providers Date of admission: 09/16/17 14:18 Expected date of discharge: 09/17/17 Attending physician: Bird De Los Santos Consults: 09/16/17 14:19 Consult Physician Urgent Consulting Provider: Morena Mejía Consult Reason/Comments: Chest Pain Do you want consulting provider notified?: Yes Primary care physician: Farhan Patel [facility] Course: FINAL DIAGNOSES: -Possible acute on chronic congestive heart failure from ischemic cardiomyopathy , ejection fraction not known. -Bilateral pleuritic pain possibly due to a low-grade viral pleurisy. -VQ scan is negative, making pulmonary as above embolism unlikely -Coronary artery disease -AICD -Essential hypertension. -Hyperlipidemia. HOSPTIAL COURSE: 82-year-old female who presented with pain on deep inspiration. Has had lower extremity swelling for about 2 months and orthopnea, admitted for the same. Occasions reordered, cardiology consulted and evaluated patient. Likely pleuritic pain not related to a cardiac event. Suggested stress testing as an outpatient. Patient declined any diagnostic testing. Cardiology gave the patient prescription for Motrin patient found to have elevated creatinine and switched pain medication to Tylenol. Patient's tolerating her diet, ambulatory in the room and hallway without difficulty. Anxious to go home. Overall condition improved, and consultants agree patient is appropriate for discharge. PHYSICAL EXAM: CARDIOVASCULAR: First and second sounds noted no edema. RESPIRATORY: Respiratory effort normal, lung sounds diminished bilaterally. PSYCHIATRY: Alert and oriented 3 mood and affect appropriate for the situation Patient was seen and examined by nurse practitioner Cass Willard in all elements of the case discussed with attending Dr. De Los Santos DISPOSITION: Home to the care of her family. Patient Condition at Discharge: Stable Plan - Discharge Summary Discharge Rx Participant: Yes New Discharge Prescriptions: New Spironolactone [Aldactone] 12.5 mg PO DAILY #30 tablet Continue Metoprolol Tartrate [Lopressor] 50 mg PO BID Amiodarone [Cordarone] 200 mg PO DAILY Losartan Potassium [Cozaar] 50 mg PO DAILY Levothyroxine Sodium [Synthroid] 100 mcg PO DAILY Discontinued Ibuprofen [Motrin] 600 mg PO Q8HR PRN PRN Reason: Pain Discharge Medication List Amiodarone [Cordarone] 200 mg PO DAILY 03/16/17 [History] Losartan Potassium [Cozaar] 50 mg PO DAILY 03/16/17 [History] Metoprolol Tartrate [Lopressor] 50 mg PO BID 03/16/17 [History] Levothyroxine Sodium [Synthroid] 100 mcg PO DAILY 09/16/17 [History] Spironolactone [Aldactone] 12.5 mg PO DAILY #30 tablet 09/17/17 [Rx] Follow up Appointment(s)/Referral(s): Farhan Bueno DO [Primary Care Provider] - 3 Days Bernice Ponce MD [STAFF PHYSICIAN] - 09/28/17 (Appontment is scheduled for Sep 28 at 2:30 pm.) Ambulatory/Diagnostic Orders: Basic Metabolic Panel [LAB.AMB] Location: Determined By Patient Patient Instructions/Handouts: Chest Pain (GEN) Discharge Disposition: HOME SELF-CARE
--- NOTE | 2017-09-18 07:19 | DS ---
DISCHARGE SUMMARY DATE OF ADMISSION: 09/16/2017. DATE OF DISCHARGE: 09/18/2017 FINAL DIAGNOSIS: 1. Acute bilateral viral pleurisy. 2. Coronary artery disease. 3. AICD. 4. Essential hypertension. 5. Hyperlipidemia. 6. Ischemic cardiomyopathy, ejection fraction 40% to 50% that is from systolic dysfunction. 7. Possibly chronic kidney disease, stage III from nephrosclerosis. HOSPITAL COURSE: This patient presented with bilateral deep inspiratory pain in the posterior part of the chest, felt to be pleuritic pain. A 2D echo showed an EF of 40% to 45%. Seen by Cardiology, no felt to be CHF and okay by Cardiology to be discharged. Close eye is to be kept on patient's creatinine which is 1.33. DISCHARGE MEDICATIONS: 1. Amiodarone 200 mg a day. 2. Cozaar 50 mg daily. 3. Lopressor 50 mg p.o. b.i.d. 4. Synthroid 100 mcg p.o. daily. 5. Aldactone 12.5 p.o. daily. Follow up with Dr. Bueno in 3 days; Dr. Jael Ponce on 09/28/2017. BMP in 3 days. MMODL / IJN: [id number] /
--- NOTE | 2017-10-14 16:39 | HP ---
HISTORY AND PHYSICAL ADDENDUM: DATE OF ADMISSION: 09/16/17 EXAMINATION: Cardiovascular 1st and 2nd sounds normal. No edema. LUNGS: Decreased breath sounds. Some right basal crackles. MMODL / IJN: [id number] /
--- NOTE | 2017-10-15 06:55 | DS ---
DISCHARGE SUMMARY ADDENDUM: DATE OF ADMISSION: 09/16/17. DATE OF DISCHARGE: 09/18/17 EXAM: Lungs are clear. Cardiovascular 1st and second sounds normal. MMODL / IJN: [id number] /
== END 2017-09-17 15:47 | disposition home or self-care (01) ==
LOC: EC 09:39 → 6SEL 14:18 → 3OBS 09-17 08:00
PROVIDERS: ADMIT Hospitalist; ATTEND Hospitalist
DX: R09.1 Pleurisy (principal); I25.10 Atherosclerotic heart disease of native coronary artery without angina pectoris; I10 Essential (primary) hypertension; E78.5 Hyperlipidemia, unspecified; I25.5 Ischemic cardiomyopathy; I25.2 Old myocardial infarction; I21.9 Acute myocardial infarction, unspecified; E03.9 Hypothyroidism, unspecified; M15.9 Polyosteoarthritis, unspecified; H54.62 Unqualified visual loss, left eye, normal vision right eye; Z95.810 Presence of automatic (implantable) cardiac defibrillator; Z86.74 Personal history of sudden cardiac arrest; Z79.899 Other long term (current) drug therapy; Z95.1 Presence of aortocoronary bypass graft
CPT/HCPCS: 96375; 96376; 96361; 96374; 99285; 36415; 93005; 93306; 85379; 83880; 80053; 80048; 82550; 82553; 83735; 84484; 85025 ×2; 85610; 85730; 81001; 71020; 78582; G0378 ×2; A9540; A9567; J2270 ×2; J1940